=== PATIENT | male | born 1990 | race Caucasian/White ===

== ENCOUNTER 2017-01-02 09:15 | Emergency (ER) | payer SELFPAY ==
--- NOTE | 2017-01-02 09:50 | XRay Report ---
Chest 2 views: History: Shortness of breath. Findings: Normal cardiomediastinal silhouette. Trachea is midline. No consolidation, pneumothorax or pleural effusion. Impression: No acute cardiopulmonary findings.
--- NOTE | 2017-01-02 12:26 | Emergency Department Report ---
HPI - General Chief Complaint: Dyspnea/Respdistress Time Seen by Provider: 01/02/17 12:01 - HPI HPI: A 6-year-old male, with no past medical history, presents today complaining of fatigue and shortness of breath that comes and goes 2 days. Patient states she is a smoker 8 years and quit smoking 2 days ago. Denies any shortness of breath at this time. Denies fever, chills, nausea, vomiting, cough, cold symptoms, chest pain, abdominal pain. Denies sick contacts. ED Past Medical Hx - Past Medical History Previous Medical History?: No - Surgical History Past Surgical History?: No - Social History Smoking Status: Current Every Day Smoker Substance Use Type: Alcohol ED Review of Systems ROS: Stated complaint: SOB/ Other details as noted in HPI Constitutional: malaise. denies: chills, fever Eyes: denies: eye pain ENT: denies: ear pain, throat pain, congestion Respiratory: denies: cough, shortness of breath, wheezing Cardiovascular: denies: chest pain, palpitations Endocrine: no symptoms reported Gastrointestinal: denies: abdominal pain, nausea, vomiting Neurological: denies: headache, weakness Physical Exam - Physical Exam Vital Signs: Vital Signs 01/02/17 09:35 Temperature 97.5 F L Pulse Rate 60 Blood Pressure 150/85 O2 Sat by Pulse 100 Oximetry Physical Exam: GENERAL: The patient is well-developed and well-nourished. Patient is in NAD. HEAD: Normocephalic. Atraumatic. EYES: PERRL. EARS: External auditory canals and tympanic membranes clear; hearing grossly intact. NOSE: Normal nasal mucosa with minimal nasal discharge. THROAT: No erythema, swelling or exudates. NECK: Supple, nontender, without lymphadenopathy. CHEST/LUNGS: Clear to auscultation throughout. HEART/CARDIOVASCULAR: Regular rate and rhythm. No murmurs, rubs or gallops. ABDOMEN: Abdomen is soft, nontender. Bowel sounds normoactive. No guarding or rebound tenderness. EXTREMITIES: Peripheral pulses intact. Capillary refill less than 2 seconds. NEURO: Alert and oriented x 3. Normal gait. ED Course Vital Signs 01/02/17 09:35 Temperature 97.5 F L Pulse Rate 60 Blood Pressure 150/85 O2 Sat by Pulse 100 Oximetry ED Medical Decision Making - Lab Data Vital Signs 01/02/17 01/02/17 09:35 13:05 Temperature 97.5 F L 98.1 F Pulse Rate 60 60 Respiratory 16 Rate Blood Pressure 150/85 Blood Pressure 133/78 [Left] O2 Sat by Pulse 100 100 Oximetry - Medical Decision Making History 6-year-old male presents today with fatigue and some intermittent shortness of breath 2 days. Patient admits to quitting smoking 2 days ago. His chest x-ray reveals no acute cardiopulmonary findings. Patient's scores <2 on the NIXON score and 0 on the Well's criteria, therefore is low risk for ACS as well as PE. Consulted with Dr. Peters, who agrees with the assessment and plan. Patient is in no acute distress at this time. He will be discharged home and is encouraged to follow up with a primary care provider. He is encouraged to return to the emergency room for any worsening symptoms. Critical care attestation.: If time is entered above; I have spent that time in minutes in the direct care of this critically ill patient, excluding procedure time. ED Disposition Clinical Impression: Smoking trying to quit Fatigue Qualifiers: Fatigue type: unspecified Qualified Code(s): R53.83 - Other fatigue Disposition: DISCHARGED TO HOME OR SELFCARE Is pt being admited?: No Does the pt Need Aspirin: No Condition: Stable Instructions: How to Stop Smoking (ED), Fatigue (ED) Additional Instructions: Follow-up with primary care provider. Return to the emergency department if symptoms worsen. Referrals: PRIMARY CARE, [Primary Care Provider] - 3-5 Days [facility] [Outside] - 3-5 Days Forms: Work/School Release Form(ED) Time of Disposition: 12:34
[2017-01-02 13:06] VITALS: BP 133/78
== END 2017-01-02 13:05 | disposition home or self-care (01) ==
LOC: ED 09:15
DX: R53.83 Other fatigue (principal); F17.200 Nicotine dependence, unspecified, uncomplicated
CPT/HCPCS: 71020; 82962; 99283